=== PATIENT | male | born 1960 | race Caucasian/White ===

== ENCOUNTER 2023-06-25 13:38 | Outpatient (CLI) | payer BC ==
[~2023-06-25 13:38] MED LIST: Iopamidol 370 76% 100 ML VIAL ONE
== END 2023-06-25 13:39 | disposition home or self-care (01) ==
LOC: CSHCT 13:38
PROVIDERS: ATTEND Family Medicine
DX: R31.29 Other microscopic hematuria (principal)
CPT/HCPCS: 74178; 82565